=== PATIENT | male | born 1940 | race Caucasian/White ===

== ENCOUNTER → 2016-04-04 | Outpatient (CLI) | payer OTHER ==
--- NOTE | 2016-04-04 15:23 | DI ---
HISTORY: Transient cerebral ischemia, unspecified type. COMPARISON: None available. TECHNIQUE: Contiguous axial images of the brain were obtained and submitted for interpretation. FINDINGS: There is no acute infarct, intracranial hemorrhage, or mass effect. There is no hydroceph alus, or significant midline shift. The basal cisterns are not effaced. There is diffuse opacification of the paranasal sinuses suggestive of sinusitis. Following contrast administration, there is no enhancing mass. IMPRESSION: 1. No intracranial hemorrhage. MRI is recommended if clinical symptoms persist.
== END ==
LOC: CT 14:00
PROVIDERS: ATTEND Physician Assistant Medical
DX: G45.9 Transient cerebral ischemic attack, unspecified (principal); R42 Dizziness and giddiness
CPT/HCPCS: 70470

== ENCOUNTER → 2016-04-09 | Outpatient (CLI) | payer OTHER ==
--- NOTE | 2016-04-09 15:41 | EKG ---
[facility] - [place] Measurements Intervals [place] Rate: 66 P: 48 IA: 187 QRS: 37 QRSD: 110 T: 40 QT: 390 QTc: 404 Interpretive Statements SINUS RHYTHM MODERATE INTRAVENTRICULAR CONDUCTION DELAY Compared to ECG 03/26/2016 09:47:04 No significant changes Electronically Signed On 04-10-16 12:25:15 MST by Luis Manuel Schaefer [email or web address]
[2016-04-10 15:40] LABS: BILIRUBIN,TOTAL 0.6 mg/dL (0.3-1.2); BUN/CREATININE RATIO 16.36 (6-20); CALCIUM 9.2 mg/dL (8.7-10.7); CREATININE 1.1 mg/dL (0.70-1.50); HEMOGLOBIN A1C 5.89 % (4.2-6.0); MEAN BLOOD GLUCOSE (CALC) 110.137 mg/dL; POTASSIUM 4.3 meq/L (3.8-5.2); TOTAL PROTEIN 7.4 g/dL (6.1-8.0)
== END ==
LOC: LAB 15:23
PROVIDERS: ATTEND Physician Assistant Medical
DX: R42 Dizziness and giddiness (principal); I10 Essential (primary) hypertension; R51 Headache; I45.89 Other specified conduction disorders; Z79.899 Other long term (current) drug therapy
CPT/HCPCS: 80053; 83036; 84443; 93005; 93010

== ENCOUNTER 2016-04-17 12:10 | Emergency (ER) | payer OTHER ==
[2016-04-17] MEDS ORDERED: MECLIZINE 25 MG CHEWABLE TABLET PO ONE (12:30)
[2016-04-17] MEDS ORDERED: ONDANSETRON 4 MG/2 ML VIAL IVP ONE (12:30)
[2016-04-17] MEDS ORDERED: Sodium Chloride 0.9% 1,000 ML PRIMARY IV ONE (12:30)
--- NOTE | 2016-04-17 12:41 | PDOC ---
Gen Adult / Medical Screen HPI - General Chief Complaint: General Medical Stated Complaint: SENT TO ER FOR HIGH B/P Date Seen by Provider: 04/17/16 Time Seen by Provider: 12:37 Source: POSITIVE: Patient, Spouse Exam Limitations: POSITIVE: No limitations Nurse's Notes Reviewed & Considered: Yes - Indicators Temperature Between 95 and 101 Degrees: Yes Respirations Between 12 and 20: Yes Blood Pressure Between 100-165 (sys) and 60-100 (malloy): Yes Pulse Range Between 60-105 (100 for age > 60 years): No (pulse is 59) Severe Pain (Greater than 5/10 Reported): No Chest or Abdominal Pain: No Inability to Walk: No Pt Reports Active High Risk Cond. (TB/Hepatitis/HIV/Chemo): No Abnormal Mental Status: No - History of Present Illness Initial Comments: The patient comes in today with chief complaint of dizziness which has resolved , and hypertension which has improved. Today patient had an episode where his systolic blood pressure reached 190, and he developed significant dizziness to the point he was unable to stand up. He has been investigated for dizziness since November 2015. There have been no diagnosis at this time. Presently patient states his dizziness has resolved, there is no nausea vomiting or diarrhea, no abdominal pain, no fever chills or sweats. Body Location Affected: REPORTS: Head Timing: REPORTS: Abrupt, Intermittent Duration: 1/2 hour Similar Symptoms Previously: Yes Recent Care Received: REPORTS: Recently Seen Any Prior Injuries Related to Current Complaint?: No - Patient Home Medications Home Medications: Home Medications Aspirin [Lo-Dose Aspirin Ec] 81 mg ORAL QD tab 09/16/11 Ipratropium/Albuterol Sulfate [Combivent Inhaler] 2 - 3 puff INH Q6H 09/16/11 Ipratropium/Albuterol Sulfate [Duoneb 0.5 Mg-3 Mg/3 Ml Soln] 3 ml NEB qd-bid #1 ml 09/30/11 Calcium Carb/Vit D3/Minerals [Caltrate Plus Tablet] 1 each PO QD 10/22/11 Cyanocobalamin/Folic Acid [Vitamin H63-Fifid Acid Tablet] 1 each PO QD 10/22/11 Tamsulosin HCl [Flomax Cap] 0.8 mg ORAL QD #180 capsule 03/15/15 Triamcinolone Acetonide 30 gm TOPICAL BID #1 tube 01/27/16 Fluticasone/Salmeterol [Advair 250-50 Diskus] 1 puff INH BID #120 puff 10/30/15 Montelukast Sodium [Singulair] 10 mg ORAL QD #90 tab 10/30/15 Metoprolol Succinate [Toprol Xl] 100 mg PO QHS #90 tab 01/14/16 - Patient Allergies Allergies/Adverse Reactions: Allergies Allergy/AdvReac Type Severity Reaction Status Date / Time lansoprazole [From Prevacid] AdvReac Intermediate DIARRHEA Verified 04/17/16 12: 17 Past Medical History - heen HEENT History: Denies History Cardiovascular History: Hypertension Respiratory History: Asthma Gastrointestinal History: GERD Genitourinary History: Denies History Endocrine History: Denies History Musculoskeletal History: Denies History Neurological History: Denies History Blood Disorders: Denies History Psychiatric History: Denies History History of Sexually Transmitted Diseases: No Cancer History: Denies History History of Other Communicable Diseases: No Alcohol Use: Other Substance Use Type: None Anesthesia Reactions: No ROS - Limitations ROS Limitations: No Limitations Constitution: REPORTS: Denies Symptoms Cardiovascular: REPORTS: Denies Cardiac Symptoms Respiratory: REPORTS: Denies Resp Symptoms Neurological: REPORTS: Dizziness Gastrointestinal: REPORTS: Denies GI Symptoms Endocrine: REPORTS: Denies Symptoms Musculoskeletal: REPORTS: Denies MS Symptoms Genitourinary: REPORTS: Denies Symptoms Eyes: REPORTS: Denies Symptoms ENT: REPORTS: Denies Symptoms Skin: REPORTS: Denies Skin Symptoms Lympathic: REPORTS: Denies Lympathic Symptoms Immunologic: POSITIVE: Denies Symptoms Psychiatric: POSITIVE: Denies Psych Symptoms Gen Adult/Medical Screen Exam - General Appearance General Appearance: POSITIVE: Alert, Cooperative, No Acute Distress, No Evidence of Trauma - HEENT HEENT: POSITIVE: Head Inspection Nml, Eyes Inspection Nml, Ears Inspection Nml, Nose Inspection Nml, Oral/Dental Inspect. Nml, Pharynx Inspect. Nml, PERRL, EOMI - Pupils Pupil Size: 5 mm: Bilateral - Neck Neck: POSITIVE: Normal Inspection, Thyroid Normal - Respiratory Respiratory: POSITIVE: No Respiratory Distress, Breath Sounds Normal, Chest Non- Tender - Cardiovascular Cardiovascular: POSITIVE: Regular Rate & Rhythm, No Murmur, No Gallop, PMI Normal - Abdomen Abdomen: Soft: (All Quadrants), Normal Bowel Sounds: (All Quadrants), Denies Tenderness: (All Quadrants) - Back Back: POSITIVE: Normal Inspection - Neurological / Psychological Mental Status: POSITIVE: Mood Normal, Affect Normal Orientation: POSITIVE: Oriented x 3 Reflexes: Patellar (R): 3+, Patellar (L): 3+, Radial (R): 3+, Radial (L): 3+ - Skin Skin: POSITIVE: Normal Color, Warm, Dry, No Rash - Extremities Extremity: Non-Tender: (All Extremities), Normal ROM: (All Extremities), Normal Inspection: (All Extremities) Gen Adlt/Medical Scrn Progress - Results Reviewed by me Xrays/CTs/US Reviewed by me: Yes Discussed with Radiologist: Yes Lab Results Reviewed: Yes Lab Results:: Laboratory Results 04/17/16 Range/Units 12:52 WBC 5.92 (4.8-10.8) 10^3/uL RBC 4.53 L (4.70-6.10) 10^6/uL Hgb 14.0 (14.0-18.0) g/dL Hct 41.4 L (42.0-52.0) % MCV 91.4 H (80-90) FL MCH 30.9 (27-31) PG MCHC 33.8 (33-37) g/dL RDW Std Deviation 46.8 (39-50) fL RDW Coeff of Kelli 14.3 (11.5-14.5) % Plt Count 215 (140-350) 10*3/uL MPV 10.4 (7.4-12.2) FL Immature Gran % (Auto) 0.3 (0-5) % Neut % (Auto) 55.2 (50-80) % Lymph % (Auto) 26.4 (10-50) % [place] % (Auto) 12.0 (5-15) % Eos % (Auto) 5.4 (0-8) % Baso % (Auto) 0.7 (0-1) % Immature Gran # (Auto) 0.02 10*3/UL Neut # (Auto) 3.27 10*3/UL Lymph # (Auto) 1.56 10*3/uL [place] # (Auto) 0.71 (0.3-0.8) 10*3/UL Eos # (Auto) 0.32 10*3/UL Baso # (Auto) 0.04 10*3/UL WBC Morphology Comment Normal morphology (NORM) Plt Morphology Comment Normal morphology (NORM) RBC Morph Comment Normal morphology (NORM) Sodium 142 (135-145) meq/L Potassium 4.3 (3.8-5.2) meq/L Chloride 109 (98-112) meq/L Carbon Dioxide 23 (23-33) meq/L Anion Gap 10 (5-20) BUN 16 (7-22) mg/dL Creatinine 1.1 (0.70-1.50) mg/dL Estimated GFR (>60 ml/min/1.73m(2)) BUN/Creatinine Ratio 14.54 (6-20) Glucose 95 (78-110) mg/dL Calculated Osmolality 294.0 H (267-292) mOsm/kg Calcium 9.1 (8.7-10.7) mg/dL Magnesium 2.0 (1.6-2.4) mg/dL Total Bilirubin 0.6 (0.3-1.2) mg/dL AST 18 L (21-57) IU/L ALT 28 (21-72) IU/L Alkaline Phosphatase 81 (38-126) IU/L Total Protein 7.6 (6.1-8.0) g/dL Albumin 4.1 (3.5-4.8) g/dL Globulin 3.6 (2.50-4.10) g/dL Albumin/Globulin Ratio 1.10 L (1.3-2.0) mg/g EKG Interpretation:: POSITIVE: Normal Sinus Rhythm - Patient's Progress Pain Medication Addressed: POSITIVE: Yes Re-Examine Time: 15:10 Status: POSITIVE: Improved MDM / ED Course: Patient brought into the emergency department, evaluated, an IV was started, blood drawn and sent to lab for studies, radiographic studies obtained. He received oral meclizine, a liter of fluid, and Zofran. Next Laboratory findings: Unremarkable MRI findings: No acute findings. Assessment: #1 dizziness which has resolved, #2 hypertension which has resolved. Plan: Follow-up with primary care physician and consider Holter monitor. - Consult Consult (If Yes, Name of Consulting MD & Time Called): No Counseled: POSITIVE: Patient, Family, RE: Lab Results, RE: Radiology Results, RE : DX, RE: Need for F/U Patient Care Time - Estimated PCT Patient Care Time (In Minutes): 30 Vital Signs - Recent Vital Signs Vital Signs: Vital Signs (Last 8 hours) Temp Pulse Resp BP Pulse Ox 04/17/16 13:27 58 L 18 157/74 92 04/17/16 12:17 97.5 F 59 L 18 147/82 93 - VS Reviewed Vital Signs Reviewed: Yes Discharge Clinical Impression: Dizziness, Hypertension Discharge Disposition: Discharged to Home Condition: Stable Patient Instructions Given at Discharge: Dizziness (ED)
--- NOTE | 2016-04-17 12:49 | EKG ---
[address] [place] [address] [place] [address] Measurements Intervals [place] Rate: 62 P: 62 SC: 204 QRS: 21 QRSD: 100 T: 47 QT: 386 QTc: 391 Interpretive Statements SINUS RHYTHM WITH OCCASIONAL SUPRAVENTRICULAR PREMATURE COMPLEXES SLOW R WAVE PROGRESSION V1-V4 Compared to ECG 04/09/2016 15:46:12 Intraventricular conduction delay no longer present Electronically Signed On 04-17-16 13:13:55 MST by Luis Manuel Schaefer [email or web address]
[2016-04-17 12:54] VITALS: RESP 18; TEMP 97.5
[2016-04-17 13:00] LABS: BASOPHILS # (AUTO) 0.04 10*3/UL; BASOPHILS % (AUTO) 0.7 % (0-1); EOSINOPHILS % (AUTO) 5.4 % (0-8); HEMATOCRIT 41.4 % (42.0-52.0); IMM GRAN % (AUTO) 0.3 % (0-5); IMM GRAN# (AUTO) 0.02 10*3/UL; LYMPHOCYTES # (AUTO) 1.56 10*3/uL; LYMPHOCYTES % (AUTO) 26.4 % (10-50); MEAN CORPUSCULAR HEMOGLOBIN 30.9 PG (27-31); MEAN CORPUSCULAR HGB CONC 33.8 g/dL (33-37); MEAN PLATELET VOLUME 10.4 FL (7.4-12.2); MONOCYTES # (AUTO) 0.71 10*3/UL (0.3-0.8); NEUTROPHILS # (AUTO) 3.27 10*3/UL; NEUTROPHILS % (AUTO) 55.2 % (50-80); RDW COEFFICIENT OF VARIATION 14.3 % (11.5-14.5); RED BLOOD COUNT 4.53 10^6/uL (4.70-6.10); WHITE BLOOD COUNT 5.92 10^3/uL (4.8-10.8)
[2016-04-17 13:01] LABS: PLATELET MORPHOLOGY COMMENT NORMAL MORPHOLOGY (NORM)
[2016-04-17 13:08] LABS: BILIRUBIN,TOTAL 0.6 mg/dL (0.3-1.2); BUN/CREATININE RATIO 14.54 (6-20); CALCIUM 9.1 mg/dL (8.7-10.7); CREATININE 1.1 mg/dL (0.70-1.50); POTASSIUM 4.3 meq/L (3.8-5.2); TOTAL PROTEIN 7.6 g/dL (6.1-8.0)
--- NOTE | 2016-04-17 14:00 | DI ---
MRI BRAIN SCAN WITHOUT CONTRAST, 04/17/2016 12:34 PM: Clinical History: Dizziness. Previous Exam: 08/17/2014. Sequences: Sagittal T1; Axial TANNER T2 and FLAIR. Axial diffusion weighted images with ADC mapping were also performed. The fourth ventricle is of normal size, shape, position and contour. The third and lateral ventricles are mildly dilated but are otherwise normal. There are no focal areas of abnormally increased or dec reased signal intensity. No cerebellar pontine angle mass is present. Diffusion weighted imaging with ADC mapping is normal. There is moderate cerebral and mild to moderate cerebellar atrophy. There are no extracerebral mantels or shift of the midline structures. There is a mucous retention cyst in the right maxillary sinus with a small air-fluid level in the left maxillary sinus that may represent [facility] [place] sinusitis. Readin. There is no evidence of a cerebellar pontine angle mass or evidence of an acute bland or hemorrha gic infarct. 2. Mild to moderate cerebellar and moderate cerebral atrophy. 3. Diffusion-weighted imaging with ADC mapping is normal. 4. There is an air-fluid level in the left maxillary sinus that may represent acute sinusitis. There is a large mucous retention cyst in the right maxillary sinus.
[2016-04-17 15:13] LABS: BILIRUBIN,URINE NEGATIVE (NEG); CLARITY,URINE CLEAR (CLEAR); GLUCOSE, URINE (UA) NEGATIVE (NEG); LEUKOCYTE ESTERASE ,URINE NEGATIVE (NEG); NITRATE,URINE NEGATIVE (NEG); OCCULT BLOOD,URINE NEGATIVE (NEG); PH,URINE 6.5 (5.0-8.5); PROTEIN,URINE NEGATIVE (NEG); UROBILINOGEN,URINE 0.2 EU/dL (0.2)
[2016-04-17 15:14] LABS: URINE SAMPLE TYPE CLEAN CATCH URINE
== END 2016-04-17 16:15 | disposition home or self-care (01) ==
LOC: ER 12:10
DX: I10 Essential (primary) hypertension (principal); R42 Dizziness and giddiness
CPT/HCPCS: 70551; 80053; 81003; 83735; 85025; 93005; 93010; 96374; 99284; J2405; J7030

== ENCOUNTER → 2016-08-08 | Outpatient (CLI) | payer OTHER ==
[2016-08-08 14:48] LABS: BASOPHILS # (AUTO) 0.04 10*3/UL; BASOPHILS % (AUTO) 0.5 % (0-1); EOSINOPHILS # (AUTO) 0.67 10*3/UL; HEMOGLOBIN 11.7 g/dL (14.0-18.0); LYMPHOCYTES # (AUTO) 1.02 10*3/uL; MEAN CORPUSCULAR HEMOGLOBIN 27.8 PG (27-31); MEAN CORPUSCULAR HGB CONC 30.8 g/dL (33-37); MEAN CORPUSCULAR VOLUME 90.3 FL (80-90); MEAN PLATELET VOLUME 10.1 FL (7.4-12.2); MONOCYTES # (AUTO) 0.91 10*3/UL (0.3-0.8); MONOCYTES % (AUTO) 10.8 % (5-15); NEUTROPHILS # (AUTO) 5.76 10*3/UL; NEUTROPHILS % (AUTO) 68.4 % (50-80); RED BLOOD COUNT 4.21 10^6/uL (4.70-6.10)
[2016-08-08 14:55] LABS: PLATELET MORPHOLOGY COMMENT NORMAL MORPHOLOGY (NORM); RBC MORPHOLOGY COMMENT NORMAL MORPHOLOGY (NORM); WBC MORPHOLOGY COMMENT NORMAL MORPHOLOGY (NORM)
== END ==
LOC: LAB 09:46
PROVIDERS: ATTEND Physician Assistant Medical
DX: D64.9 Anemia, unspecified (principal); M25.475 Effusion, left foot; Z48.812 Encounter for surgical aftercare following surgery on the circulatory system
CPT/HCPCS: 84550; 85025